=== PATIENT | male | born 1960 | race Caucasian/White ===

== ENCOUNTER 2017-07-19 06:51 | Inpatient (IN) | payer MEDICARE, OTHER ==
[2017-06-22 13:26] VITALS: BMI 38.0
--- NOTE | 2017-06-22 14:04 | PAT Medication Instructions ---
Service Date Jun 22, 2017. Current Home Medication List Cholecalciferol (Vitamin D3), 1 TAB PO QPM Citalopram Hydrobromide (Citalopram Hydrobromide), 1 TAB PO QPM Diazepam (Valium), 5 MG PO Q6 PRN for Muscle Spasms Folic Acid (Folvite), 1 MG PO QPM Magnesium Oxide (Mg Supplement (Magnesium), 1 TAB PO QPM Metformin Hcl (Glucophage), 500 MG PO BID Methotrexate (Methotrexate), 8 TAB PO WK Oxycodone/Acetaminophen 10MG/325MG (Percocet 10MG/325MG), 1 TAB PO Q6 PRN for Pain Medication Instructions For Your Scheduled Surgery -Follow your prescriber's instructions for: Methotrexate (Methotrexate), 8 TAB PO WK - Hold the following medications the morning of surgery: Metformin Hcl (Glucophage), 500 MG PO BID - Take the following medications the morning of surgery with a sip of water: Diazepam (Valium), 5 MG PO Q6 PRN for Muscle Spasms (if needed) Oxycodone/Acetaminophen 10MG/325MG (Percocet 10MG/325MG), 1 TAB PO Q6 PRN for Pain (if needed, can be taken up to four hours before surgery) - Take the following medications as scheduled the night before surgery: Cholecalciferol (Vitamin D3), 1 TAB PO QPM Citalopram Hydrobromide (Citalopram Hydrobromide), 1 TAB PO QPM Diazepam (Valium), 5 MG PO Q6 PRN for Muscle Spasms (if needed) Folic Acid (Folvite), 1 MG PO QPM Magnesium Oxide (Mg Supplement (Magnesium), 1 TAB PO QPM Metformin Hcl (Glucophage), 500 MG PO BID Oxycodone/Acetaminophen 10MG/325MG (Percocet 10MG/325MG), 1 TAB PO Q6 PRN for Pain (if needed) If you have any questions please call us at [phone] or [phone] or [phone]
--- NOTE | 2017-06-22 14:48 | DIAGNOSTIC IMAGING REPORT ---
CHEST 2 VIEWS ROUTINE CLINICAL HISTORY: PAT preoperative evaluation COMPARISON STUDY: No previous studies for comparison. FINDINGS: The bones soft tissues and hemidiaphragms are normal. The cardiomediastinal silhouette is normal. The lungs are clear. The pulmonary vasculature is normal. IMPRESSION: Negative chest. The above report was generated using voice recognition software. It may contain grammatical, syntax or spelling errors. Electronically signed by: Yadiel Celis M.D. 06/22/2017 2:46 PM Dictated Date/Time: 06/22/2017 2:46 PM
[~2017-07-19] VITALS: Ht 188 cm; Wt 136.5 kg
[2017-07-19] VITALS (10 sets, daily range): BP systolic 110–152; BP diastolic 67–88; PULSE 62–75; TEMP 36.3–36.9; O2SAT 96–100; BMI 39.0
[~2017-07-19 06:51] MED LIST: ACETAMINOPHEN 500 MG TAB PO SCH; ALBUMIN HUMAN 5% 12.5 GM/250 ML VIAL IV ONE; CEFAZOLIN 3000MG IV PUSH 22.5 ML IV SCH; CHOL1TAB46 PO; CITA10TA4 PO; CeleBREX 200 MG CAP PO SCH; DIAZ-165 PO; FOLI1TAB8 PO; GABAPENTIN 600 MG PO SCH; GLC/500 PO; LACTATED RINGER'S 1000ML 1,000 ML IV SCH; MAGN500C PO; METH2.5T PO; OXYC-106 PO
[2017-07-19] MEDS ORDERED: MIDAZOLAM HCL 1 MG/ML 2ML VIAL ONE (08:09)
[2017-07-19] MEDS ORDERED: FENTANYL CITRATE INJ 50 MCG/1 ML 2 ML VIAL ONE ×8 (08:09→12:42)
--- NOTE | 2017-07-19 08:21 | History & Physical Bridge Note ---
H&P Re-Evaluation Bridge Note: I have examined the patient, reviewed the History & Physical and in the interval since the performance of the History & Physical I have noted the following changes of clinical significance: No changes noted
--- NOTE | 2017-07-19 08:22 | History and Physical ---
History & Physical Date Jul 19, 2017. Chief Complaint Back and leg pain History of Present Illness The patient is a 57 year old male with complaints of back and leg pain Additional History Hepatic Disease: No Endocrine Disorder: No Kidney Disease: No Hypertension: No Heart Disease: No Bleeding Tendencies: No Infectious Diseases: No Allergies Coded Allergies: No Known Allergies (Unverified , 07/19/17) Home Medications Scheduled Cholecalciferol (Vitamin D3), 1 TAB PO QPM Citalopram Hydrobromide (Citalopram Hydrobromide), 1 TAB PO QPM Folic Acid (Folvite), 1 MG PO QPM Magnesium Oxide (Mg Supplement (Magnesium), 1 TAB PO QPM Metformin Hcl (Glucophage), 500 MG PO BID Methotrexate (Methotrexate), 8 TAB PO WK Scheduled PRN Diazepam (Valium), 5 MG PO Q6 PRN for Muscle Spasms Oxycodone/Acetaminophen 10MG/325MG (Percocet 10MG/325MG), 1 TAB PO Q6 PRN for Pain Physical Examination Skin: warm/dry, no rash Eyes: normal inspection, EOMI, sclerae normal ENT: normal ENT inspection, pharynx normal Head: normocephalic, atraumatic Neck: supple, no adenopathy, trachea midline Respiratory/Chest: lungs clear, normal breath sounds, no respiratory distress Cardiovascular: regular rate, rhythm, no edema, no murmur Abdomen / GI: normal bowel sounds, non tender Back: normal inspection Extremities: normal inspection, normal range of motion Neurologic/Psych: no motor/sensory deficits, alert, normal reflexes, oriented x 3 Diagnosis Lumbar spinal stenosis Plan of Treatment Lumbar decompression and fusion L2-S1 with possible iliac bolts
[2017-07-19] MEDS ORDERED: ATROPINE SULFATE 0.1 MG/ML 5ML SYR IV PRN (08:30)
[2017-07-19] MEDS ORDERED: MEPERIDINE HCL 25 MG/ML CARP IV PRN (08:30)
[2017-07-19] MEDS ORDERED: ONDANSETRON INJ 2 MG/ML 2 ML VIAL IV PRN (08:30)
[2017-07-19] MEDS ORDERED: PHENYLEPHRINE 100MCG/ML 5ML SYR IV PRN (08:30)
[2017-07-19] MEDS ORDERED: FLUMAZENIL 0.1 MG/1 ML 10 ML VIAL IV PRN (08:30)
[2017-07-19] MEDS ORDERED: EpHEDrine SULFATE INJ 50 MG/ML AMP IV PRN (08:30)
[2017-07-19] MEDS ORDERED: NALOXONE HCL 0.4 MG/1 ML VIAL/CARP IV PRN ×3 (08:30→12:45)
[2017-07-19] MEDS ORDERED: LABETALOL HCL IV 5 MG/ML 20ML IV PRN (08:30)
[2017-07-19] MEDS ORDERED: BUPIVACAINE/EPINEPHRINE 0.5% MPF 1:200,000 30 ML VIAL ONE (08:44)
[2017-07-19] MEDS ORDERED: HYDROmorphone INJ 2 MG/ML SYR/VIAL ONE ×3 (09:29→12:54)
[2017-07-19] MEDS ORDERED: DEXAMETHASONE SOD INJ 4 MG/ML VIAL ONE (11:46)
[2017-07-19] MEDS ORDERED: EpHEDrine SULFATE 50MG/5ML SYR ONE ×2 (11:46→12:56)
[2017-07-19] MEDS ORDERED: PHENYLEPHRINE 100MCG/ML 5ML SYR ONE ×2 (11:46→12:56)
[2017-07-19] MEDS ORDERED: PROPOFOL IV EMULSION 10 MG/ML 20 ML VIAL IV ONE (11:46)
[2017-07-19] MEDS ORDERED: ONDANSETRON INJ 2 MG/ML 2 ML VIAL ONE (11:46)
[2017-07-19] MEDS ORDERED: LIDOCAINE HCL 2% 2 ML VIAL (20MG/ML) ONE (11:46)
[2017-07-19] MEDS ORDERED: ROCURONIUM BROMIDE 10 MG/ML 5 ML VIAL IV ONE (11:51)
[2017-07-19] MEDS ORDERED: BACITRACIN 50000 UNIT VIAL IR ONE (12:19)
[2017-07-19] MEDS ORDERED: FLOSEAL HEMOSTATIC MATRIX 10ML TOP ONE (12:29)
[2017-07-19 12:31] LABS: HEMATOCRIT 37.9 % (42-52); HEMOGLOBIN 12.5 g/dL (14.0-18.0)
[2017-07-19] MEDS: SODIUM CHLORIDE 0.9% 1000ML 1,000 ML IV SCH ×2 (12:39→20:45)
[2017-07-19] MEDS ORDERED: SODIUM CHLORIDE 0.9% 1000ML 1,000 ML IV SCH (12:39)
--- NOTE | 2017-07-19 12:39 | [facility] Operative Report ---
Operative Report Operative Date Jul 19, 2017. Pre-Operative Diagnosis Lumbar Spinal Stenosis Post-Operative Diagnosis Lumbar spinal stenosis Procedure(s) Performed 1. Lumbar decompression medial facetectomies foraminotomies L2-3 L3-4 L4-5 L5-S1. #2 posterior spinal fusion L2-3 L3-4 L4-5 L5-S1. #3 bilateral SI joint fusions. #4 placement of posterior segmental instrumentation L2-S1 including bilateral iliac bolts. #5 interbody fusion L4-5 L5-S1. #6 placement peek cage 14 x 26 mm at L4-5 11 x 26 mm at L5-S1. #7 placement InFUSE collagen sponge combined with master graft in the posterior lateral gutters and ostial amp in the interbody space. #8 placement of locally harvested Retana's allograft in the posterior lateral gutters. Surgeon Dr. Kramer Distribution Specialist Surgeon(s) Alka Miramontes PA-C Estimated Blood Loss 1000 cc Findings Severe spinal stenosis Specimens none per surgeon Anesthesia Type General Description of Procedure Patient was met with preoperatively case discussed all questions addressed. After informed consent obtained patient was taken to the operative suite underwent intubation and placed in a prone position on the Kosta table on top of the Agustin frame. All bony prominences were well-padded eyes inspected to ensure no external pressure placed upon the. This point the lumbar spine was prepped and draped in normal sterile fashion. Sharp dissection with the assistance of Bovie cautery was performed down to and exposing the lamina and transverse processes of L2 L3-L4-L5 sacral ala and bilateral SI joints. From a caudal to cephalad fashion complete laminectomy of L5 L4 L3 and L2 was performed addressing severe lateral recess and foraminal stenosis. Pedicle screws were then placed in L2-L3-L4 L5-S1 levels as well as bilateral iliac bolts. Through a transforaminal approach on the right complete discectomy of L5 -S1 was performed endplates created to subcortical bleeding bone and 11 x 26 mm peek cage filled with ostium bone graft tapped in position. Then proceeded to 4 5 and again through a transforaminal approach on the right complete discectomy performed endplates curetted to subcortical bleeding bone and a 11 x 22 mm peek cage filled with ostia bone graft tapped in position. Probe size rods were then contoured and locked into position bilaterally. The transverse processes of L2 L3-L4-L5 sacral ala were burred to subcortical bleeding bone as well as bring out the bilateral SI joints. Infuse collagen sponge mass graft and locally harvested Retana's autograft was placed in the SI joints in the posterior gutters. 15 round MARGARET drain inserted. Incision was then closed with 1 Vicryl the fascia 2-0 Vicryl substantially and 4-0 Monocryl for final skin closure Steri-Strips sterile dressings placed. Patient will continue to PACU stable condition. Please note Nusrat Miramontes was present throughout the entire procedure involved in patient positioning complex portions of the surgery and final skin closure. I attest to the content of the Intraoperative Record and any orders documented therein. Any exceptions are noted below.
[2017-07-19] MEDS ORDERED: hydrOXYzine HCL 25 MG TAB PO PRN (12:45)
[2017-07-19] MEDS ORDERED: SOD PHOSPHATE/SOD BIPHOSPHATE ENEMA 132 ML BTL PR PRN (12:45)
[2017-07-19] MEDS ORDERED: DO NOT ADMINISTER PNEUMOCOCCAL VACCINE PRN (12:45)
[2017-07-19] MEDS ORDERED: BISACODYL 10 MG SUPP PR PRN (12:45)
[2017-07-19] MEDS ORDERED: FAMOTIDINE 20 MG TAB PO PRN (12:45)
[2017-07-19] MEDS ORDERED: PROMETHAZINE HCL INJ 12.5 MG in SODIUM CHLORIDE 0.9% 50ML 50 ML IV PRN (12:45)
[2017-07-19] MEDS ORDERED: DO NOT ADMINISTER FLU VACCINE PRN (12:45)
[2017-07-19] MEDS ORDERED: ACETAMINOPHEN IV 100 ML IV PRN (12:45)
[2017-07-19] MEDS ORDERED: ACETAMINOPHEN 500 MG TAB PO PRN (12:45)
[2017-07-19] MEDS ORDERED: METOCLOPRAMIDE HCL INJ 5 MG/ML 2 ML VIAL IV PRN (12:45)
[2017-07-19] MEDS ORDERED: CEFAZOLIN SOD 1 GM VIAL ONE (12:47)
[2017-07-19] MEDS ORDERED: RANITIDINE HCL 25 MG/ML INJ ONE (12:56)
[2017-07-19] MEDS ORDERED: GLYCOPYRROLATE INJ 0.2 MG/ML VIAL ONE (12:56)
[2017-07-19] MEDS ORDERED: NEOSTIGMINE METHYLSULFATE 1 MG/ML 10ML VIAL ONE (12:56)
[2017-07-19] MEDS ORDERED: METOCLOPRAMIDE HCL INJ 5 MG/ML 2 ML VIAL ONE (12:56)
[2017-07-19] MEDS ORDERED: PHARMACY GLYCEMIC MGMT CONSULT PRN (13:15)
[2017-07-19] MEDS ORDERED: VOLUVEN IN NSS ONE (13:21)
[2017-07-19] MEDS ORDERED: GLUCAGON FOR INJ 1 MG VIAL SQ PRN (13:30)
[2017-07-19] MEDS ORDERED: GLUCOSE 40% GEL 15 GM TUBE PO PRN (13:30)
[2017-07-19] MEDS ORDERED: GLUCOSE 10 TABS/TUBE PO PRN (13:30)
[2017-07-19] MEDS ORDERED: DEXTROSE 50% 50 ML SYR IV PRN (13:30)
[2017-07-19] MEDS: HYDROmorphone INJ 0.5 MG/0.5 ML SYR IV PRN ×4 (13:35→13:52)
--- NOTE | 2017-07-19 13:36 | Pharmacy Progress Note ---
Glycemic Control Intl Consult Date of Service Jul 19, 2017. Scope Glycemic Pharmacist consulted by Dr Kramer on 07/19/17 for glycemic control and to write orders per [facility] inpatient glycemic control protocol Objective Weight (Kilograms): 136.5 Accuchecks BSG (last 24hrs): Test 07/19/17 07:15 Bedside Glucose 128 mg/dl (70-99) Recent Pertinent Medications Outpatient Anti-diabetic Regimen: * Metformin 500mg PO BIDM * A1c = Unknown Risk Factors for Insulin Resistance: * Steroids: DXM x 1 intraop * Recent Surgery * Diet Assessment & Plan ASSESSMENT: * 57yo T2DM male with unknown degree of outpatient control. Will order A1c per protocol with AM labs on POD#1 * Pt is maintained on oral antidiabetic agents as an outpatient * Oral agents are not recommended for inpatient use d/t drug interactions, changing PO intake, and difficulty titrating for acute hyper/hypoglycemia. ADA recommends re-initiating outpatient oral agents 1-2 days prior to discharge if/ when appropriate if they were held on admission. * Will hold oral agents for admission and utilize SQ basal bolus insulin regimen which is the recommended regimen for inpatient glycemic control. * Will initiate weight based insulin dosing for insulin glenn patient and titrate based on BSG trends. * POD #0 --> Weight and high stress insulin dosing for recent surgery and high dose of dexamethasone given intraop x1 * POD#1 --> Adjust orders based on BSG trends. Start to taper insulin as hyperglycemic effects may persist for 24hrs+ after dose given. May consider resuming metformin if PO intake adequate and Scr WNL. * POD#2 --> Prep for discharge. Depending on A1c, continue to taper insulin and resume oral agents. PLAN FOR INPATIENT GLYCEMIC CONTROL: Weight based/high stress doing to maintain BSG <200 mg/dl (ideally <150 mg/dl) post operatively to prevent infectious complications. * A1c with AM labs POD#1 AM * Hold outpatient oral diabetes medications * May resume POD#1 or 2 depending on PO intake and Scr * Basal insulin: weight and high stress dosing secondary to dexamethasone * Lantus 50 units SQ x 1 dose, will re-evaluate further dosing tomorrow * Bolus insulin * NovoLog per scale ACHS or Q6hrs while NPO * Goal Range: Low 110 mg/dL - High 140 mg/dL * Correction Factor: 10 mg/dL/unit * Nutritional / Prandial insulin per carb ratio of 1 unit per 4 grams CHO consumed * Please note that the plan above was derived based on current level of insulin resistance and hospital stress. These recommendations are appropriate for inpatient admission only. Plan of care upon discharge will need to be reassessed to avoid potential outpatient hypo/hyperglycemia. Thank you.
[2017-07-19] MEDS: HYDROmorphone HCL 0.5MG/ML 50 ML CASSETTE IV PRN ×3 (13:45→18:52)
--- NOTE | 2017-07-19 13:48 | Anesthesiology Progress Note ---
Anesthesia Post Op Note Date & Time Jul 19, 2017 at 13:48 Vital Signs Pain Intensity: 4 Vital Signs Past 12 Hours Date Time Temp Pulse Resp B/P (MAP) Pulse Ox O2 Delivery O2 Flow Rate FiO2 07/19/17 13:42 68 16 07/19/17 13:42 67 16 153/88 98 07/19/17 13:37 75 13 98 07/19/17 13:37 74 13 07/19/17 13:36 135/95 07/19/17 13:32 75 13 07/19/17 13:32 76 13 156/94 98 07/19/17 13:27 74 16 07/19/17 13:27 73 16 97 07/19/17 13:26 76 15 142/108 97 07/19/17 13:26 76 15 07/19/17 13:21 79 21 07/19/17 13:21 77 21 174/94 97 07/19/17 13:16 81 13 07/19/17 13:16 82 13 166/83 98 07/19/17 13:11 73 15 180/85 98 07/19/17 13:11 73 15 07/19/17 13:11 36.0 86 16 180/85 97 Oxymask 10 07/19/17 07:54 96 Room Air 07/19/17 07:50 36.6 62 20 152/88 Notes Mental Status: alert / awake / arousable, participated in evaluation Pt Amnestic to Procedure: Yes Nausea / Vomiting: adequately controlled Pain: adequately controlled, improving with treatment Airway Patency, RR, SpO2: stable & adequate BP & HR: stable & adequate Hydration State: stable & adequate Anesthetic Complications: no major complications apparent
[2017-07-19] MEDS: MoRPHine SULFATE 10 MG/ML CARP/VIAL IV PRN ×5 (13:57→14:20)
--- NOTE | 2017-07-19 14:07 | DIAGNOSTIC IMAGING REPORT ---
INTRAOPERATIVE RADIOGRAPHS CLINICAL HISTORY: L2-S1 spinal fusion. Fluoroscopy time: 32 seconds. FINDINGS: 5 spot fluoroscopic views of the lumbar spine are presented. There has been discectomy at L4-L5 and L5-S1. There are postlaminectomy changes from L2 -S1. Interpedicular screws are present at all levels. Bilateral iliac bolts are in place. The orthopedic hardware appears intact. IMPRESSION: Intraoperative images from L2 -S1 spinal fusion as above. Electronically signed by: Zack Paz M.D. 07/19/2017 2:06 PM Dictated Date/Time: 07/19/2017 2:05 PM
[2017-07-19] MEDS ORDERED: KETOROLAC TROMETHAMINE 30 MG/ML VIAL ONE (14:17)
[2017-07-19] MEDS ORDERED: INSULIN GLARGINE SOLOSTAR 100 UNITS/ML 3 ML PEN SC ONE (16:00)
[2017-07-19] MEDS: ONDANSETRON INJ 2 MG/ML 2 ML VIAL IV PRN (17:51)
[2017-07-19] MEDS: CEFAZOLIN IV 2,000 MG in SYRINGE 0 ML IV SCH (18:39)
[2017-07-19] MEDS: INSULIN ASPART 100 UNITS/ML 3 ML PEN SC SCH ×2 (18:42→20:50)
[2017-07-19] MEDS: LORAZEPAM 0.5 MG TAB PO PRN (19:26)
[2017-07-19] MEDS: MAGNESIUM OXIDE 400 MG TAB PO SCH (20:49)
[2017-07-19] MEDS: DOCUSATE SODIUM/SENNA 50/8.6MG TAB PO SCH (20:49)
[2017-07-20] MEDS: SODIUM CHLORIDE 0.9% 1000ML 1,000 ML IV SCH (01:38)
[2017-07-20] MEDS: CEFAZOLIN IV 2,000 MG in SYRINGE 0 ML IV SCH (01:38)
[2017-07-20 03:04] VITALS: BP 130/75; PULSE 74; TEMP 36.8; O2SAT 98
[2017-07-20] MEDS: LORAZEPAM 0.5 MG TAB PO PRN (05:41)
[2017-07-20] MEDS ORDERED: NURSING VERBAL MED ORDER ONE (05:45)
[2017-07-20] MEDS ORDERED: DC PCA SCH (06:00)
[2017-07-20 06:52] VITALS: BP 124/64; PULSE 65; TEMP 36.7; O2SAT 98
[2017-07-20 07:04] LABS: BASO % 0.1 %; BASO ABS # 0.01 K/uL (0-0.2); HEMATOCRIT 35.2 % (42-52); HEMOGLOBIN 11.4 g/dL (14.0-18.0); IG# 0.06 K/uL (0.00-0.02); LYMPH % 8.7 %; LYMPH ABS # 1.31 K/uL (1.2-3.4); MEAN CELL VOLUME 91.2 fL (80-100); MEAN CORPUSCULAR HEMOGLOBIN 29.5 pg (25-34); MEAN CORPUSCULAR HGB CONC 32.4 g/dl (32-36); MONO % 6.3 %; MONO ABS # 0.95 K/uL (0.11-0.59); NEUT % 84.5 %; NEUT ABS # 12.74 K/uL (1.4-6.5); PLATELET COUNT 234 K/uL (130-400); RED CELL DISTRIBUTION WIDTH CV 13.9 % (11.5-14.5); RED CELL DISTRIBUTION WIDTH SD 45.7 fL (36.4-46.3); WHITE BLOOD COUNT 15.07 K/uL (4.8-10.8)
[2017-07-20] MEDS: DIAZEPAM 5MG TAB PO PRN ×3 (07:14→21:33)
[2017-07-20 07:39] LABS: CALCIUM 8.6 mg/dl (8.5-10.1); CREATININE 0.96 mg/dl (0.60-1.40)
--- NOTE | 2017-07-20 08:13 | Clinical Documentation Query ---
SASKIA Felix : CLINICAL DOCUMENTATION QUERIES QUERY 1 OF 2 No documented PMH. However, home medications and nursing admission assessment suggestive of the following. As appropriate, consider documentation as suggested below. Thank you. In your clinical opinion is this patient being managed for: ( x ) Type 2 DM, RA, GERD, hypercholesterolemia, LAKISHA ( ) Not Agree ( ) Other explanation of clinical findings (Please Explain) ( ) Unable to determine (Please Define) ( ) Need to Discuss The medical record reflects the following clinical findings, treatment, and risk factors. Treatment:Cholecalciferol (Vitamin D3), 1 TAB PO QPM Citalopram Hydrobromide (Citalopram Hydrobromide), 1 TAB PO QPM Folic Acid (Folvite), 1 MG PO QPM Magnesium Oxide (Mg Supplement (Magnesium), 1 TAB PO QPM Metformin Hcl (Glucophage), 500 MG PO BID Methotrexate (Methotrexate), 8 TAB PO WK QUERY 2 OF 2 Patient is a 57 year old male who underwent posterior lumbosacral decompression, posterior spinal and interbody fusion. Total blood loss to date is 1,740 ml's. H&H this a.m. 11.4 g/dl and 35.2%. Unknown preoperative H&H. In your clinical opinion is this patient being managed for: (x ) Acute blood loss anemia ( ) Not Agree ( ) Other explanation of clinical findings (Please Explain) ( ) Unable to determine (Please Define) ( ) Need to Discuss The medical record reflects the following clinical findings, treatment, and risk factors. Clinical Indicators: As above Treatment: Serial hematology, I/O including drain outputs. Risk Factors: Acute perioperative blood losses. Please clarify and document your clinical opinion in the progress notes and discharge summary. Terms such as "probable", "suspected", "likely", "questionable", "possible", or "still to be ruled out" are acceptable. IF IN AGREEMENT, YOU MUST DOCUMENT ABOVE DIAGNOSTIC STATEMENT IN DAILY PROGRESS NOTES AND DISCHARGE SUMMARY. This document is not part of the patient's record. Thank You, Dominick Vicente, RN [phone]
[2017-07-20] MEDS ORDERED: KETOROLAC TROMETHAMINE 30 MG/ML VIAL IV STA (08:23)
--- NOTE | 2017-07-20 08:27 | Progress Note ---
Progress Note Date of Service Jul 20, 2017. Progress Note Patient complaining mostly of back pain. Leg symptoms improved. Vital signs are stable. On exam is good strength testing. Plan at this time continue physical therapy add Toradol to his pain regiment anticipate discharge home this weekend.
[2017-07-20] MEDS: ONDANSETRON INJ 2 MG/ML 2 ML VIAL IV PRN (08:28)
[2017-07-20] MEDS ORDERED: KETOROLAC TROMETHAMINE 30 MG/ML VIAL ONE (08:32)
[2017-07-20 08:38] LABS: HEMOGLOBIN A1C 6.3 % (4.5-5.6)
[2017-07-20] MEDS: HYDROmorphone INJ 0.5 MG/0.5 ML SYR IV PRN (08:45)
[2017-07-20] MEDS: INSULIN ASPART 100 UNITS/ML 3 ML PEN SC SCH ×4 (08:53→21:11)
[2017-07-20] MEDS: INSULIN GLARGINE SOLOSTAR 100 UNITS/ML 3 ML PEN SC SCH ×2 (09:39→21:00)
--- NOTE | 2017-07-20 10:49 | Pharmacy Progress Note ---
Pharmacy Glycemic Short Note 2 Date of Service Jul 20, 2017. OUTPATIENT ANTIDIABETIC REGIMEN: * Metformin 500 mg BID * A1c 6.3% 07/20/17 Test 07/19/17 13:26 07/19/17 17:10 07/19/17 20:32 07/20/17 06:10 Bedside Glucose 178 mg/dl (70-99) 174 mg/dl (70-99) 183 mg/dl (70-99) Random Glucose 144 mg/dl (70-99) Test 07/20/17 08:11 Bedside Glucose 154 mg/dl (70-99) ASSESSMENT: 07/20/17 * Patient received 59 units of insulin yesterday, BSGs all well controlled as noted above * Is POD #1 s/p spinal surgery and effects of Decadron received yesterday should be wearing off by tonight/tomorrow AM * Will provide additional basal insulin today only - based upon insulin calculator estimates using wt/stress of 2 * Continue aggressive CF/CR through today * Resume metformin w/ dinner as SCr stable and po intake adequate 07/19/17 * 57yo T2DM male with unknown degree of outpatient control. Will order A1c per protocol with AM labs on POD#1 * Pt is maintained on oral antidiabetic agents as an outpatient * Oral agents are not recommended for inpatient use d/t drug interactions, changing PO intake, and difficulty titrating for acute hyper/hypoglycemia. ADA recommends re-initiating outpatient oral agents 1-2 days prior to discharge if/ when appropriate if they were held on admission. * Will hold oral agents for admission and utilize SQ basal bolus insulin regimen which is the recommended regimen for inpatient glycemic control. * Will initiate weight based insulin dosing for insulin glenn patient and titrate based on BSG trends. * POD #0 --> Weight and high stress insulin dosing for recent surgery and high dose of dexamethasone given intraop x1 * POD#1 --> Adjust orders based on BSG trends. Start to taper insulin as hyperglycemic effects may persist for 24hrs+ after dose given. May consider resuming metformin if PO intake adequate and Scr WNL. * POD#2 --> Prep for discharge. Depending on A1c, continue to taper insulin and resume oral agents. PLAN FOR INPATIENT GLYCEMIC CONTROL: * Resume metformin 500 mg BID starting w/ dinner * Basal insulin * Lantus 23 units this AM * Lantus 23 units this PM (13 units if BSG less than 150) * Further basal doses dependent on BSG tomorrow AM * Bolus insulin * NovoLog per scale ACHS or Q6hrs while NPO * Goal Range: Low 110 mg/dL - High 140 mg/dL * Correction Factor: 10 mg/dL/unit * Nutritional / Prandial insulin per carb ratio of 1 unit per 4 grams CHO consumed -> will need to loosen at some point tomorrow once steroids wear off PLAN FOR DISCHARGE: * A1c acceptable * Continue metformin
[2017-07-20 14:04] VITALS: Ht 188 cm; Wt 136.5 kg
--- NOTE | 2017-07-20 14:21 | Anesthesiology Progress Note ---
Anesthesia Post Op Note Date & Time Jul 20, 2017 at 14:21 Vital Signs Vital Signs Past 12 Hours Date Time Temp Pulse Resp B/P (MAP) Pulse Ox O2 Delivery O2 Flow Rate FiO2 07/20/17 07:14 Room Air 07/20/17 06:52 36.7 65 21 124/64 (84) 98 Room Air 07/20/17 03:04 36.8 74 18 130/75 (93) 98 Room Air Notes Mental Status: alert / awake / arousable, participated in evaluation Pt Amnestic to Procedure: Yes Nausea / Vomiting: adequately controlled Pain: adequately controlled Airway Patency, RR, SpO2: stable & adequate BP & HR: stable & adequate Hydration State: stable & adequate Anesthetic Complications: no major complications apparent
[2017-07-20 15:17] VITALS: BP 113/61; PULSE 72; TEMP 36.9; O2SAT 98
[2017-07-20] MEDS: OXYCODONE HCL IR 5 MG TAB (IMMEDIATE RELEASE) PO PRN ×2 (15:21→21:33)
[2017-07-20] MEDS ORDERED: RXC5 PO (17:44)
--- NOTE | 2017-07-20 17:47 | Discharge Instructions ---
Discharge Instructions Date of Service Jul 20, 2017. Admission Reason for Admission: Spinal Stenosis Discharge Discharge Diagnosis / Problem: lumbar stenosis Discharge Goals Goal(s): Improve function Activity Recommendations Activity Limitations: per Instructions/Follow-up section . Instructions / Follow-Up Instructions / Follow-Up ACTIVITY RECOMMENDATIONS: SELF CARE INSTRUCTIONS AFTER THORACIC/LUMBAR FUSIONS 1. You may walk to your tolerance. It is good exercise for your legs and back. Expect some back and intermittent leg aches and pains. 2. You may perform "counter-top" level activities (make a sandwich, divina with a project, etc.). 3. No bending or lifting of more than 10 pounds or back twisting of any nature (roll like a log when turning in bed). 4. You may ride in a car for 20-30 minutes at a time. No driving until after your first visit with your doctor. 5. Frequent changes of position and restricting sitting to 30 minutes at a time will help limit the amount of back spasms and stiffness you may experience. 6. You may discontinue the use of ambulatory aids (cane, crutches, etc.) once your strength and confidence allow. 7. You may textiles printer the shower and let water strike your incision when you arrive home at least once daily. Do not take a tub bath, sit in a hot tub or go into a swimming pool until after your first recheck in the office. SPECIAL CARE INSTRUCTIONS: VERY IMPORTANT TO READ AND REVIEW A. Your surgical incision has been closed with a cosmetic suture under the skin that will dissolve in about 6 weeks. In 14 days, you can use a pair of clean scissors and cut the suture that is left outside of the skin at the ends of your incision. 1. The small skin tapes can be removed 7 days after surgery if they have not fallen off by that point. 2. You may keep the wound open to air as much as possible to promote healing after post-op day number 5 unless told otherwise by your doctor. 3. If you think the wound looks like it is becoming infected (redness or worsening drainage) and/or you are experiencing fever, chill or worsening back pain and muscle spasms, contact the office so that we may evaluate you as soon as possible. B. Complications are uncommon, but please contact us if you have any signs or symptoms of: 1. wound infection (fever higher than 102.5 degrees F, redness, separation of wound, drainage, or increasing pain from the incision) 2. blood clots in legs (pain, swelling, redness and warmth in legs) 3. urinary tract infection (fever higher than 102.5 degrees F, burning upon urination or increased frequency of urination) 4. nerve problems (inability to walk on your toes or heels, numbness, loss of bowel or bladder control) 5. any other symptoms that concern you C. Please call the office at if you have any concerns or questions about your operation or recovery. D. No smoking! Smoking drastically decreases the chance of a solid fusion. E. Do not take any anti-inflammatory medications (Indocin, Advil, Motrin, Aspirin, Naprosyn, etc.) as these may inhibit the chance of a solid fusion. Tylenol is okay to take for pain. MANAGING PAIN AFTER SPINAL SURGERY 1. Narcotic medication is intended for short-term use and will be provided for surgical pain. Surgical pain usually lasts for a period of 4-6 weeks. Narcotic medication includes Percocet, Vicodin, Darvocet, Tylenol #3 or Lortab. 2. Longer-term pain is more appropriately treated with non-narcotic medication such as Tylenol ES. 3. Muscle spasm is not appropriately treated with narcotics. Muscle relaxers such as Soma, Flexeril or Skelaxin can be used along with Tylenol ES. 4. Remember that we all live with some "aches and pains". This is not unusual or uncommon after an injury or as we get older. a. Back pain is expected and may include muscle spasms for 4 to 6 weeks after surgery. The pain should gradually improve. If the pain worsens for no apparent reason, please contact the office. b. Intermittent leg pain may also be experienced and should not be concerned about unless it worsens for no apparent reason. If so, please contact the office. 5. We will provide appropriate medication within the normal guidelines of their prescribed use. We will also be very cautious and aware of potential abuse and extended duration of patients' medication needs. a. Pain medications are for your comfort and to assist with sleep and rest so that the tissue can heal. They are not provided in order to return to normal activity and should not be used through the day. To do so or worsening pain at night can result from ongoing tissue damage and development of tolerance to the prescribed medicine. 6. Please allow 2-3 days to process refills. Prescriptions will not be mailed but must be picked up at the office. FOLLOW UP VISIT: Keep your scheduled follow-up appointment. Any questions, please call the office at . Current Hospital Diet Patient's current hospital diet: Diabetes Type 2 Diet Discharge Diet Recommended Diet: Regular Diet Procedures Procedures Performed: 1. Lumbar decompression medial facetectomies foraminotomies L2-3 L3-4 L4-5 L5-S1. #2 posterior spinal fusion L2-3 L3-4 L4-5 L5-S1. #3 bilateral SI joint fusions. #4 placement of posterior segmental instrumentation L2-S1 including bilateral iliac bolts. #5 interbody fusion L4-5 L5-S1. #6 placement peek cage 14 x 26 mm at L4-5 11 x 26 mm at L5-S1. #7 placement InFUSE collagen sponge combined with master graft in the posterior lateral gutters and ostial amp in the interbody space. #8 placement of locally harvested Retana's allograft in the posterior lateral gutters. Pending Studies Studies pending at discharge: no Laboratory Results Hemoglobin A1c Test 07/20/17 06:10 Range/Units Estimated Average Glucose 134 mg/dl Hemoglobin A1c 6.3 H 4.5-5.6 % Medical Emergencies . Who to Call and When: Medical Emergencies: If at any time you feel your situation is an emergency, please call 911 immediately. . Non-Emergent Contact Non-Emergency issues call your: Primary Care Provider . "Provider Documentation" section prepared by Arben Kramer. .
[2017-07-20] MEDS: METFORMIN HCL 500 MG TAB PO SCH (18:31)
[2017-07-20] MEDS: MAGNESIUM OXIDE 400 MG TAB PO SCH (21:10)
[2017-07-20] MEDS: DOCUSATE SODIUM/SENNA 50/8.6MG TAB PO SCH (21:10)
[2017-07-20] MEDS: ALUMINUM/MAGNESIUM SUSP 30 ML UDC PO PRN (21:33)
[2017-07-20 22:59] VITALS: BP 137/73; PULSE 61; TEMP 37; O2SAT 92
[2017-07-20] MEDS: KETOROLAC TROMETHAMINE 30 MG/ML VIAL IV PRN (23:56)
[2017-07-21] MEDS: OXYCODONE HCL IR 5 MG TAB (IMMEDIATE RELEASE) PO PRN ×4 (03:29→19:12)
[2017-07-21] MEDS: DIAZEPAM 5MG TAB PO PRN ×4 (03:29→21:57)
[2017-07-21] MEDS: POLYETHYLENE (MIRALAX) 17 GM PACK PO SCH ×4 (05:23→23:13)
[2017-07-21 07:42] VITALS: BP 119/68; PULSE 82; TEMP 37; O2SAT 94
[2017-07-21] MEDS: KETOROLAC TROMETHAMINE 30 MG/ML VIAL IV PRN ×4 (07:57→20:14)
[2017-07-21] MEDS: METFORMIN HCL 500 MG TAB PO SCH ×2 (08:59→17:50)
[2017-07-21] MEDS: INSULIN ASPART 100 UNITS/ML 3 ML PEN SC SCH ×4 (09:01→21:00)
[2017-07-21] MEDS: HYDROmorphone INJ 0.5 MG/0.5 ML SYR IV PRN ×2 (10:39→23:12)
--- NOTE | 2017-07-21 12:06 | Progress Note ---
Progress Note Date of Service Jul 21, 2017. Progress Note Patient still struggling with back pain and leg symptoms however markedly improved. Vital signs are stable. Exam is good strength testing appears comfortable. Assessment status post lumbar lumbar decompression fusion per plan at this time will continue physical therapy today and throughout the weekend. Hopefully discharge home Monday or Monday. He will require a hospital bed for frequent changes of position to control his back pain and to of course assist him in getting in and out of bed.
[2017-07-21] MEDS: LORAZEPAM 0.5 MG TAB PO PRN (12:13)
--- NOTE | 2017-07-21 12:17 | Pharmacy Progress Note ---
Pharmacy Glycemic Short Note 2 Date of Service Jul 21, 2017. OUTPATIENT ANTIDIABETIC REGIMEN: * Metformin 500 mg BID * A1c 6.3% 07/20/17 Item Value Date Time Bedside Glucose 154 mg/dl H 07/20/17 0811 Bedside Glucose 111 mg/dl H 07/20/17 1321 Bedside Glucose 105 mg/dl H 07/20/17 1707 Bedside Glucose 144 mg/dl H 07/20/17 2059 Bedside Glucose 131 mg/dl H 07/21/17 0809 ASSESSMENT: * 57yo T2DM male with excellent outpatient control per recent A1c * Metformin held immediately post op and pharmacy initiated weight based insulin dosing for insulin glenn patient and titrate based on BSG trends. * POD #0 --> Weight and high stress insulin dosing for recent surgery and high dose of dexamethasone given intraop x1 * POD#1 --> Adjust orders based on BSG trends. Start to taper insulin as hyperglycemic effects may persist for 24hrs+ after dose given. May consider resuming metformin if PO intake adequate and Scr WNL. * POD#2 --> BSGs all in range with current orders. Basal insulin likely not needed anymore since the hyperglycemic effects of DXM likely dissipated at this point. D/C basal insulin. Resumed oral agents yesterday, so will start to taper CR if BSGs trend downwards. PLAN FOR INPATIENT GLYCEMIC CONTROL: Maintain BSG <200 mg/dl (ideally <150 mg/dl ) post operatively to prevent infectious complications. * Continue outpatient oral diabetes medications * Metformin 500mg PO BIDM * Basal insulin: D/C * Bolus insulin : start to taper/decrease * NovoLog per scale ACHS or Q6hrs while NPO * Goal Range: Low 110 mg/dL - High 140 mg/dL * Correction Factor: 20 mg/dL/unit * Nutritional / Prandial insulin per carb ratio of 1 unit per 7 grams CHO consumed PLAN FOR DISCHARGE: * A1c acceptable * Continue metformin
[2017-07-21 14:55] VITALS: BP 124/72; PULSE 71; TEMP 36.9; O2SAT 96
[2017-07-21] MEDS: HYDROmorphone INJ 2 MG/ML SYR/VIAL IV PRN ×2 (16:18→19:58)
[2017-07-21] MEDS: LORAZEPAM INJ 0.5 MG in SYRINGE 0.75 ML IV PRN (20:07)
[2017-07-21] MEDS: MAGNESIUM OXIDE 400 MG TAB PO SCH (20:16)
[2017-07-21] MEDS: DOCUSATE SODIUM/SENNA 50/8.6MG TAB PO SCH (20:16)
[2017-07-21] MEDS: ALUMINUM/MAGNESIUM SUSP 30 ML UDC PO PRN (21:59)
[2017-07-21 23:21] VITALS: BP 124/72; PULSE 76; TEMP 36.8; O2SAT 93
[2017-07-22] VITALS (8 sets, daily range): BP systolic 112–134; BP diastolic 70–84; PULSE 76–91; TEMP 36.8–36.9; O2SAT 92–96
[2017-07-22] MEDS: OXYCODONE HCL IR 5 MG TAB (IMMEDIATE RELEASE) PO PRN ×4 (01:13→17:54)
[2017-07-22] MEDS: KETOROLAC TROMETHAMINE 30 MG/ML VIAL IV PRN ×2 (03:40→17:55)
[2017-07-22] MEDS: HYDROmorphone INJ 0.5 MG/0.5 ML SYR IV PRN (03:41)
[2017-07-22] MEDS: POLYETHYLENE (MIRALAX) 17 GM PACK PO SCH ×4 (05:48→23:02)
[2017-07-22] MEDS: LORAZEPAM INJ 0.5 MG in SYRINGE 0.75 ML IV PRN (05:50)
[2017-07-22] MEDS: DIAZEPAM 5MG TAB PO PRN ×3 (08:07→20:43)
[2017-07-22] MEDS: METFORMIN HCL 500 MG TAB PO SCH ×2 (09:08→17:54)
[2017-07-22] MEDS: INSULIN ASPART 100 UNITS/ML 3 ML PEN SC SCH ×4 (09:14→21:00)
[2017-07-22] MEDS: HYDROmorphone INJ 2 MG/ML SYR/VIAL IV PRN (09:15)
[2017-07-22] MEDS: SODIUM CHLORIDE 0.9% 1000ML 1,000 ML IV SCH (10:37)
--- NOTE | 2017-07-22 10:41 | Progress Note ---
Progress Note Date of Service Jul 22, 2017. Progress Note Patient is still struggling with severe back spasms. He is having no leg pain. Again he does have a history of episodes of significant back spasms requiring hospitalization. Has had this for several years. Vital signs are stable. He has good strength testing lower extremities. Assessment status post lumbar decompression fusion. Plan at this time I will increase his volume to help with the spasms. I will also restart his PATTERNMAKER SAMPLE for at least the next 24-48 hours to help assist in his pain.
[2017-07-22] MEDS ORDERED: NALOXONE HCL 0.4 MG/1 ML VIAL/CARP IV PRN (10:45)
[2017-07-22] MEDS: HYDROmorphone HCL 0.5MG/ML 50 ML CASSETTE IV PRN ×3 (11:49→22:21)
[2017-07-22] MEDS: DOCUSATE SODIUM/SENNA 50/8.6MG TAB PO SCH (20:45)
[2017-07-22] MEDS: MAGNESIUM OXIDE 400 MG TAB PO SCH (20:45)
[2017-07-23] MEDS: KETOROLAC TROMETHAMINE 30 MG/ML VIAL IV PRN ×3 (00:33→18:13)
[2017-07-23] MEDS: DIAZEPAM 5MG TAB PO PRN ×4 (03:03→23:24)
[2017-07-23 03:05] VITALS: BP 136/77; PULSE 77; TEMP 36.6; O2SAT 93
[2017-07-23] MEDS: POLYETHYLENE (MIRALAX) 17 GM PACK PO SCH (05:03)
[2017-07-23] MEDS: MAGNESIUM HYDROXIDE SUSP 30 ML UDC PO PRN (05:04)
[2017-07-23] MEDS: HYDROmorphone HCL 0.5MG/ML 50 ML CASSETTE IV PRN ×4 (06:51→22:57)
[2017-07-23 07:16] VITALS: BP 124/76; PULSE 71; TEMP 36.7; O2SAT 95
[2017-07-23] MEDS: OXYCODONE HCL IR 5 MG TAB (IMMEDIATE RELEASE) PO PRN ×2 (08:28→18:54)
[2017-07-23] MEDS: METFORMIN HCL 500 MG TAB PO SCH ×2 (08:28→17:53)
[2017-07-23] MEDS: INSULIN ASPART 100 UNITS/ML 3 ML PEN SC SCH ×4 (08:30→20:30)
--- NOTE | 2017-07-23 08:30 | Progress Note ---
Progress Note Date of Service Jul 23, 2017. Progress Note Patient presents postop day #4. He states his pain is better controlled at this point. 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 Is not having any the back spasms that he had yesterday. He is not having pain rating down his legs. He denies any numbness, tingling, paresthesias has not yet had a bowel movement. Objective: Patient is awake and alert he is afebrile vital signs are stable. His dressings clean dry and intact. His MARGARET drains in place and is holding suction. His lower extremity motor exam reveals no focal atrophy strength and sensation both intact. Calves are supple nontender abdomen soft and nontender. Assessment: Patient is improving postop day #4. Plan: The patient is comfortable at this point but is only been comfortable over the last 12 hours. We will keep him here today to ensure that he is more comfortable. He advance his bowel regimen. We will advance his activity levels with physical therapy and Occupational Therapy. If he does well throughout the day as possible discharge him to home tomorrow.
[2017-07-23] MEDS: LORAZEPAM INJ 0.5 MG in SYRINGE 0.75 ML IV PRN ×2 (11:04→20:27)
[2017-07-23] MEDS: SODIUM CHLORIDE 0.9% 1000ML 1,000 ML IV SCH (11:09)
[2017-07-23 11:27] VITALS: BP 117/72; PULSE 76; TEMP 36.8; O2SAT 94
[2017-07-23] MEDS ORDERED: NURSING VERBAL MED ORDER ONE (12:15)
--- NOTE | 2017-07-23 13:25 | Pharmacy Progress Note ---
Pharmacy Glycemic Short Note 2 Date of Service Jul 23, 2017. OUTPATIENT ANTIDIABETIC REGIMEN: * Metformin 500 mg BID * A1c 6.3% 07/20/17 Item Value Date Time Bedside Glucose 109 mg/dl H 07/22/17 0809 Bedside Glucose 139 mg/dl H 07/22/17 1159 Bedside Glucose 102 mg/dl H 07/22/17 1658 Bedside Glucose 127 mg/dl H 07/22/17 2050 Bedside Glucose 117 mg/dl H 07/23/17 0800 ASSESSMENT: * 57yo T2DM male POD # 4 s/p lumbar surgery with excellent outpatient control per recent A1c * Patient has required minimal insulin over the past 24 hours to obtain adequate glycemic control * Last dose of basal insulin was given 07/20 * BSGs trending downward on bolus insulin only, therefore I will remove carb ratio and use correction only PLAN FOR INPATIENT GLYCEMIC CONTROL: Maintain BSG <200 mg/dl (ideally <150 mg/dl ) post operatively to prevent infectious complications. * Continue outpatient oral diabetes medications * Metformin 500mg PO BIDM * Basal insulin: none * Bolus insulin : remove carb ratio * NovoLog per scale ACHS or Q6hrs while NPO * Goal Range: Low 110 mg/dL - High 140 mg/dL * Correction Factor: 25 mg/dL/unit PLAN FOR DISCHARGE: * A1c acceptable * Continue metformin
[2017-07-23 15:23] VITALS: BP 143/80; PULSE 84; TEMP 36.9; O2SAT 95
[2017-07-23 19:49] VITALS: BP 126/71; PULSE 78; TEMP 36.8; O2SAT 96
[2017-07-23] MEDS: DOCUSATE SODIUM/SENNA 50/8.6MG TAB PO SCH (20:30)
[2017-07-23] MEDS: MAGNESIUM OXIDE 400 MG TAB PO SCH (20:31)
[2017-07-23 23:23] VITALS: BP 116/76; PULSE 82; TEMP 36.7; O2SAT 96
[2017-07-24] MEDS: KETOROLAC TROMETHAMINE 30 MG/ML VIAL IV PRN ×4 (01:48→22:51)
[2017-07-24 03:54] VITALS: BP 117/72; PULSE 67; TEMP 36.8; O2SAT 96
[2017-07-24] MEDS: OXYCODONE HCL IR 5 MG TAB (IMMEDIATE RELEASE) PO PRN ×3 (04:20→21:06)
[2017-07-24] MEDS: MAGNESIUM HYDROXIDE SUSP 30 ML UDC PO PRN (05:17)
[2017-07-24 06:17] VITALS: BP 122/80; PULSE 72; TEMP 36.6; O2SAT 97
[2017-07-24] MEDS: HYDROmorphone HCL 0.5MG/ML 50 ML CASSETTE IV PRN (06:50)
[2017-07-24] MEDS: INSULIN ASPART 100 UNITS/ML 3 ML PEN SC SCH ×4 (07:33→21:00)
[2017-07-24] MEDS: METFORMIN HCL 500 MG TAB PO SCH ×2 (07:33→17:52)
[2017-07-24] MEDS: DIAZEPAM 5MG TAB PO PRN ×3 (07:35→21:06)
--- NOTE | 2017-07-24 14:30 | Progress Note ---
Progress Note Date of Service Jul 24, 2017. Progress Note Patient's back spasms have improved. Leg symptoms are resolved. He is ambulating well with assistance. Vital signs are stable. On exam his good strength testing is stable but appears more comfortable. Plan at this time will discontinue the PHP WORDPRESS DEVELOPER this morning attempt oral medications and hopefully discharge home tomorrow.
[2017-07-24] MEDS ORDERED: VLM5 PO (14:35)
[2017-07-24] MEDS: MAGNESIUM OXIDE 400 MG TAB PO SCH (21:00)
[2017-07-24] MEDS: DOCUSATE SODIUM/SENNA 50/8.6MG TAB PO SCH (21:00)
[2017-07-24 23:00] VITALS: BP 130/75; PULSE 89; TEMP 36.9; O2SAT 95
[2017-07-25] MEDS: OXYCODONE HCL IR 5 MG TAB (IMMEDIATE RELEASE) PO PRN ×2 (03:08→07:24)
[2017-07-25] MEDS: DIAZEPAM 5MG TAB PO PRN ×2 (04:04→10:23)
[2017-07-25 08:32] VITALS: BP 138/70; PULSE 103; TEMP 36.7; O2SAT 95
[2017-07-25] MEDS: INSULIN ASPART 100 UNITS/ML 3 ML PEN SC SCH (08:37)
[2017-07-25] MEDS: METFORMIN HCL 500 MG TAB PO SCH (08:38)
[2017-07-25] MEDS ORDERED: KETOROLAC TROMETHAMINE 30 MG/ML VIAL IV. STA (10:27)
[2017-07-25] MEDS ORDERED: NURSING VERBAL MED ORDER ONE (10:30)
[2017-07-25 10:44] VITALS: BP 138/70; PULSE 103; TEMP 36.7; O2SAT 95
== END 2017-07-25 11:05 | disposition home or self-care (01) | DRG 455 ==
LOC: C.ACU 06:51 → UNDOADMIN 07:30 → C.3E 07:30 → ENRESERV 13:52
PROVIDERS: ADMIT Orthopaedic Surgery Orthopaedic Surgery of the Spine; ATTEND Orthopaedic Surgery Orthopaedic Surgery of the Spine
PROC: 0SG1071 Fusion of 2 or more Lumbar Vertebral Joints with Autologous Tissue Substitute, Posterior Approach, Posterior Column, Open Approach (ICD-10-PCS; principal; 2017-07-19 09:15)
PROC: 0SG3071 Fusion of Lumbosacral Joint with Autologous Tissue Substitute, Posterior Approach, Posterior Column, Open Approach (ICD-10-PCS; principal; 2017-07-19 09:15)
PROC: 0ST40ZZ Resection of Lumbosacral Disc, Open Approach (ICD-10-PCS; principal; 2017-07-19 09:15)
PROC: 0SG00AJ Fusion of Lumbar Vertebral Joint with Interbody Fusion Device, Posterior Approach, Anterior Column, Open Approach (ICD-10-PCS; principal; 2017-07-19 09:15)
PROC: 0SG30AJ Fusion of Lumbosacral Joint with Interbody Fusion Device, Posterior Approach, Anterior Column, Open Approach (ICD-10-PCS; principal; 2017-07-19 09:15)
PROC: 0ST20ZZ Resection of Lumbar Vertebral Disc, Open Approach (ICD-10-PCS; principal; 2017-07-19 09:15)
DX: M48.061 Spinal stenosis, lumbar region without neurogenic claudication (principal); Z79.84 Long term (current) use of oral hypoglycemic drugs; Z79.899 Other long term (current) drug therapy